=== PATIENT | female | born 1965 | race Caucasian/White ===

== ENCOUNTER 2024-01-03 08:10 | Emergency (ER) | payer OTHER ==
--- OUTSIDE RECORDS SUMMARY | 2024-01-03 08:12 | XMS REPORT | Continuity of Care Document ---
Author Name Unknown Address [address] [facility] [address] [place] [address] [facility] thconnect Address [address] [facility] 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 Name Role Phone Rob BAR, Ariana Iraheta Primary Care Physician ARIANA RIVAS Attending Clinician Unava ilable LAB90 Attending Clinician Unavailable Rob BAR, Ariana Iraheta Attending Clinician [phone] Payers Payer Name Policy Type Policy Number Effective Date Expirati on Date Source [facility] 2 [id number] 2017 00:00:00 Problems Condition Name Condition Details Condition Category Status Onset Date Resolution Date Last Treatment Date Treating Clinician Comments Source Hyperlipid emia Hyperlipid emia Disease Active 09-26 00:00: 00 Luis Andrews Hypothyroi d Hypothyroi d Disease Active 09-26 00:00: 00 Luis Andrews Seasonal allergies Seasonal allergies Disease Active 09-26 00:00: 00 Luis Andrews PND (post-nasa l drip) PND (post-nasa l drip) Disease Active 09-26 00:00: 00 Luis Andrews Social History Social Habit Start Date Stop Date Quantity Comments Source Sex Ass[birth year] At 1965 00:00:00 1965 00:00:00 Luis Andrews Smoking Status Start Date Stop Date Source Never smoked tobacco Luis Andrews Medications Ordered Medication Name Filled Medication Name Start Date Stop Date Current Medication? Ordering Clinician Indication Dosage Frequency Signature (SIG) Comments Components Source Loratadine (CLARITIN) 10 MG oral tablet 05-13 09:58: 19 Yes 10mg Take 10 mg by mouth daily Luis Andrews Tolterodine Tartrate 4 MG oral Capsule 24 Hour Sustained Release 05-13 00:00: 00 Yes [id number] 4mg Take 1 capsule (4 mg total) by mouth daily Luis Andrews Montelukast (SINGULAIR) 10 MG oral Tablet tablet 11-27 00:00: 00 Yes [id number] 10mg Take 1 tablet (10 mg total) by mouth nightly Luis Andrews Atorvastati n Calcium 40 MG oral Tablet 09-26 00:00: 00 Yes [id number] 40mg Take 1 tablet (40 mg total) by mouth daily Luis Andrews Levothyroxi ne Sodium 88 MCG oral Tablet 09-26 00:00: 00 Yes [id number] 88ug Take 1 tablet (88 mcg total) by mouth daily Luis Andrews Vital Signs Vital Name Observation Time Observation Value Comments S ource Systolic blood pressure 2021-05-13 15:57:00 119 mm[Hg] Luis Andrews Diastolic blood pressure 2021-05-13 15:57:00 74 mm[Hg] Luis Marrufo ld Heart rate 2021-05-13 15:57:00 97 /min Linda Andrews Body temperature 2021-05-13 15:57:00 36.33 Teresa Luis Andrews Respiratory rate 2021-05-13 15:57:00 14 /min Luis Andrews Body height 2021-05-13 15:57:00 170.2 cm Savita Andrews Body weight 2021-05-13 15:57:00 87.998 kg Savita Andrews BMI 2021-05-13 15:57:00 30.38 kg/m2 Savita Andrews Procedures Procedure Date / Time Performed Performing Clinicia n Source URINALYSIS NONAUTO W/O SCOPE 2021-05-13 16:12:00 Ariana Rivas Encounters Start Date/Time End Date/Time Encounter Type Admission Type Attending [facility] Care Department Encounter ID Source 2023-09-22 10:24:00 Outpatient [facility] [id number] [facility] 2023-08-05 14:50:00 Outpatient [facility] [id number] [facility] 2021-05-23 00:00:00 2021-05-23 00:00:00 Outpatient ARIANA RIVAS [id number] Luis Andrews 2021-05-13 10:35:00 2021-05-13 10:35:00 Outpatient LABEmilia SMITH [id number] Luis Andrews 2021-05-13 10:00:00 2021-05-13 10:15:00 Office Visit Ariana Rivas [facility] [id number] Luis Andrews 2020-11-29 00:00:00 2020-11-29 00:00:00 Outpatient ARIANA RIVAS [id number] Luis Andrews 2020-11-27 08:45:00 2020-11-27 08:45:00 Outpatient LABEmilia LUIS SMITH [id number] Luis Andrews 2020-11-27 08:00:00 2020-11-27 08:00:00 Outpatient ARIANA RIVAS [id number] Luis Andrews 2020-10-15 00:00:00 2020-10-15 00:00:00 Outpatient ARIANA RIVAS [id number] Luis Andrews Results Test Description Test Time Test Comments Results Result Co mments Source Luis Andrews
[2024-01-03] MEDS ORDERED: ONDANSETRON 4 MG/2 ML VIAL ONE (08:37)
[2024-01-03] MEDS ORDERED: NA CHLORIDE 0.9% 1,000 ML ONE ×2 (08:38→10:48)
[2024-01-03] MEDS ORDERED: MORPHINE 4 MG/ML SYR ONE (08:38)
[2024-01-03 08:59] LABS: Sqamous Epithelial <5 /HPF (None Seen); Urine Bacteria None Seen /HPF (<20); Urine Bilirubin 1+ (Negative); Urine Blood Negative (Negative); Urine Clarity Extremely Turbid (Clear); Urine Color Yellow (Yellow); Urine Culture Reflex Order NOT NEEDED; Urine Glucose NEGATIVE (Negative); Urine Ketones NEGATIVE (Negative); Urine Microscopic Reflex YN ORDER UMIC; Urine Mucus 2+ /HPF (None Seen); Urine Nitrite NEGATIVE (Negative); Urine Protein 1+ (Negative); Urine Urobilinogen 1+ (Normal)
[2024-01-03 09:06] LABS: Absolute Lymphocytes (CBC) 0.7 K/uL (0.7-4.9); Absolute Monocytes 1.2 K/uL (0.1-1.3); Absolute Neutrophil 7.6 K/uL (1.8-8.0); Basophils % 0.2 % (0-1.3); Eosinophils % 0.1 % (0-4.4); Hematocrit 35.6 % (36.0-45.0); Hemoglobin 11.4 g/dL (12.0-15.0); MCH 28.1 pg (27.0-35.0); MCHC 32.1 g/dL (32.0-36.0); MCV 87.6 fL (80-100); MPV 8.3 fL (7.6-11.3); Monocytes % 12.9 % (3.3-12.3); Neutrophils % 79.8 % (41.7-73.7); Platelets 437 thou/uL (152-406); RBC Red Blood Cell Count 4.06 M/uL (3.86-4.86); Red Cell Distribution Width 16.5 % (12.1-15.2)
[2024-01-03 09:14] LABS: Albumin/Globulin Ratio 0.8 (1.1-1.8); Anion Gap 9.7 mEq/L (5.0-15.0); Bilirubin Total 0.5 mg/dL (0.2-1.0); Globulin 3.9 g/dL (2.3-3.5); Potassium 3.7 mEq/L (3.5-5.1); Protein, Total 6.9 g/dL (6.4-8.2)
[2024-01-03 09:17] LABS: Troponin High Sensitivity 12484.6 pg/mL (<58.9)
--- NOTE | 2024-01-03 09:30 | RAD REPORT ---
EXAMINATION: CT ABDOMEN AND PELVIS WITH CONTRAST CLINICAL INDICATION: Female, 58 years old.ABD PAIN TECHNIQUE: CT abdomen and pelvis was performed, after the administration of IV contrast, as per [facility] protocol. Axial, sagittal and coronal reconstructions were obtained. One or more of the following dose reduction techniques were used: Automated exposure control, adjustment of the mA and/o r kV according to patient size, and/or iterative reconstruction. Unless otherwise specified, incidental findings do not require dedicated imaging follow-up. [id number]. COMPARISON: No prior exam. FINDINGS: LOWER CHEST: The visualized lung bases are clear. LIVER: Multiple liver lesions identified. The largest in the left hepatic lobe measures 2.8 cm. The l argest in the right measures 2 cm. GALLBLADDER/BILE DUCT: Cholelithiasis with gallbladder wall thickening.? PANCREAS: No significant abnormality. SPLEEN: Normal size. No focal lesion. ADRENALS: Normal; no mass. KIDNEYS AND URETERS: Normal size and contour. No hydronephrosis. GASTROINTESTINAL TRACT: Dilated appendix with appendicolith. Mass at the cecum. PERITONEUM: Mild ascites. Enlarged lymph nodes in the ileocolic mesentery. There are several implants in the lower pelvis. LYMPH NODES: Enlarged ileocolic mesenteric lymph nodes. There is one for example measures 2.2 cm in s hort axis. ABDOMINAL AORTA AND OTHER VESSELS: Normal caliber aorta and IVC. URINARY BLADDER: Normal contour. REPRODUCTIVE ORGANS: No pathologic process MUSCULOSKELETAL: No acute or suspicious osseous abnormality. ADDITIONAL FINDINGS: None. IMPRESSION: Cecal mass concerning for colonic adenocarcinoma with regional lymphadenopathy and metastatic disease to the liver. Peritoneal carcinomatosis is also present. The appendix is dilated as a result of obstruction from the cecal mass. Acute appendicitis not excluded. Recommend surgical consultation. Greta scussed with Dr. Horne by Dr. King at 0920 on 01/03/24
--- NOTE | 2024-01-03 10:15 | EDPHYS ---
Physician Documentation [facility] Name: Adrianne Cross Age: 58 yrs Sex: Female : 1965 Arrival Date: 01/03/2024 Time: 08:10 Bed 13 Private MD: ED Physician Denae Horne HPI: 01/02 08:46 This 58 yrs old Female presents to ER via Ambulatory with complaints of Flank Pain - sp3 right, Nausea/Vomiting/Diarrhea. 08:46 58-year-old female with history of hyperlipidemia, hypothyroidism presents with sp3 right-sided abdominal pain radiating to the right flank for approximately 24 hours. Patient has no past surgical history. She denies any flank pain, fever, chest pain, shortness of breath, visualized hematuria, urinary frequency, dysuria, GREEN BELT complaints, or any other signs or symptoms on ROS at this time. She does endorse nausea without diarrhea.. Historical: - Allergies: 08:43 No Known Allergies; ss - PMHx: 08:43 Hypothyroidism; high cholesterol; ss - Immunization history:: Client reports receiving the 1st dose of the Covid vaccine. - Infectious Disease History:: Denies. - Social history:: Smoking status: Patient denies any tobacco usage or history of. ROS: 09:06 Constitutional: Negative for fever, chills, and weight loss, Eyes: Negative for injury, sp3 pain, redness, and discharge, ENT: Negative for injury, pain, and discharge, Cardiovascular: Negative for chest pain, palpitations, and edema, Respiratory: Negative for shortness of breath, cough, wheezing, and pleuritic chest pain, Back: Negative for injury and pain, MS/Extremity: Negative for injury and deformity, Skin: Negative for injury, rash, and discoloration, Neuro: Negative for headache, weakness, numbness, tingling, and seizure, Psych: Negative for depression, anxiety, suicide ideation, homicidal ideation, and hallucinations, Allergy/Immunology: Negative for hives, rash, and allergies, Endocrine: Negative for neck swelling, polydipsia, polyuria, polyphagia, and marked weight changes, Hematologic/Lymphatic: Negative for swollen nodes, abnormal bleeding, and unusual bruising, 09:06 All other systems are negative, Exam: 09:08 Constitutional: This is a well developed, well nourished patient who is awake, alert, sp3 and in no acute distress. Head/Face: Normocephalic, atraumatic. Eyes: Pupils equal round and reactive to light, extra-ocular motions intact. Lids and lashes normal. Conjunctiva and sclera are non-icteric and not injected. Cornea within normal limits. Periorbital areas with no swelling, redness, or edema. Neck: Trachea midline, no thyromegaly or masses palpated, and no cervical lymphadenopathy. Supple, full range of motion without nuchal rigidity, or vertebral point tenderness. No Meningismus. Chest/axilla: Normal chest wall appearance and motion. Nontender with no deformity. No lesions are appreciated. Cardiovascular: Regular rate and rhythm with a normal S1 and S2. No gallops, murmurs, or rubs. Normal PMI, no JVD. No pulse deficits. Respiratory: Lungs have equal breath sounds bilaterally, clear to auscultation and percussion. No rales, rhonchi or wheezes noted. No increased work of breathing, no retractions or nasal flaring. Back: No spinal tenderness. No costovertebral tenderness. Full range of motion. Skin: Warm, dry with normal turgor. Normal color with no rashes, no lesions, and no evidence of cellulitis. MS/ Extremity: Pulses equal, no cyanosis. Neurovascular intact. Full, normal range of motion. Neuro: Awake and alert, GCS 15, oriented to person, place, time, and situation. Cranial nerves II-XII grossly intact. Motor strength 5/5 in all extremities. Sensory grossly intact. Cerebellar exam normal. Normal gait. Psych: Awake, alert, with orientation to person, place and time. Behavior, mood, and affect are within normal limits. 09:30 ECG was reviewed by the Attending Physician. EKG demonstrates sinus bradycardia at 53 sp3 bpm with normal intervals except QTc of [address] nonspecific diffuse ST/T changes without evidence of acute ischemia. Vital Signs: 08:41 BP 125 / 73; Pulse 58; Resp 16; Temp 97.9(O); Pulse Ox 98% on R/A; Weight 77.11 kg; ss Height 5 ft. 7 in. ; Pain 5/10; 09:30 BP 117 / 66; Pulse 56; Resp 18; Pulse Ox 100% on R/A; db 10:00 BP 112 / 65; Pulse 49; Resp 16; Pulse Ox 100% on R/A; db 11:00 BP 103 / 59; Pulse 49; Resp 18; Pulse Ox 100% ; db 12:00 BP 102 / 58; Pulse 52; Resp 18; Pulse Ox 99% on R/A; db 13:00 BP 99 / 60; Pulse 55; Resp 18; Pulse Ox 96% on R/A; db 14:00 BP 103 / 60; Pulse 56; Resp 20; Temp 97.9; Pulse Ox 95% on R/A; db 15:23 BP 105 / 62; Pulse 58; Resp 18; Pulse Ox 96% ; db 08:41 Body Mass Index 26.63 (77.11 kg, 170.18 cm) ss 08:41 Pain Scale: Adult ss MDM: 08:27 Patient medically screened. sp3 09:10 Data reviewed: vital signs, nurses notes, lab test result(s), EKG, radiologic studies. sp3 ED course: 58-year-old female with right-sided abdominal pain. Differential diagnosis includes UTI/pyelonephritis spectrum, kidney stone, biliary pathology including gallbladder gastritis, colitis, appendicitis, among others. I am at highly suspicious for sepsis, shock, AAA, or any other critical process at this time. Workup will include CT scan of the abdomen pelvis with IV contrast, laboratory values, urine analysis and general supportive care with morphine and ondansetron IV as needed.. 09:30 ED course: . sp3 09:38 ED course: CT scan demonstrates new diagnosis of colon adenocarcinoma with metastases sp3 to liver and local lymph nodes. Troponin also noted to be at 12,000 with EKG demonstrating no ST elevation. Consider pulmonary embolism as secondary cause of patient's symptoms however patient has no chest pain or shortness of breath currently. CT scan of the chest will be added on and patient will be admitted to internal medicine with cardiology and general surgery consultations. I have contacted both via instant message who will be seeing patient.. 10:13 ED course: Inpatient team not comfortable taking care of patient here. We will transfer sp3 patient to [facility] where they will have surgical backup to potential cardiac intervention.. 14:03 ED course: Patient accepted at [facility].. sp3 01/02 08:28 Order name: CBC with Diff; Complete Time: 09:22 sp3 01/02 08:28 Order name: CMP; Complete Time: 09:22 sp3 01/02 08:28 Order name: Lipase; Complete Time: 09:22 sp3 01/02 08:28 Order name: Urinalysis w/ reflexes; Complete Time: 09:22 sp3 01/02 08:28 Order name: Troponin High Sensitivity; Complete Time: 09:22 sp3 01/02 08:28 Order name: Lactate w/ 2H reflex if indic.; Complete Time: 09:22 sp3 01/02 08:28 Order name: CT Abd/Pelvis - IV Contrast Only; Complete Time: 09:32 sp3 01/02 08:28 Order name: EKG; Complete Time: 08:29 sp3 01/02 08:28 Order name: IV Saline Lock; Complete Time: 08:57 sp3 01/02 08:28 Order name: Labs collected and sent; Complete Time: 08:57 sp3 01/02 08:28 Order name: EKG - Nurse/Tech; Complete Time: 10:07 sp3 01/02 11:36 Order name: NPO; Complete Time: 15:02 sb4 Administered Medications: 08:45 Drug: NS 0.9% IV 1000 ml IV at 1 bolus Per protocol; 1000 mL bolus Route: IV; Rate: 1 db bolus; Site: right antecubital; 10:00 Follow up: Response: No adverse reaction; IV Status: Completed infusion; IV Intake: db 1000ml 08:45 Drug: Ondansetron IVP 4 mg IVP once; over 2 minutes Route: IVP; Site: right antecubital;db 10:08 Follow up: Response: No adverse reaction db 08:45 Drug: morphine IVP or IV 4 mg IVP once over 4 mins Route: IVP; Infused Over: 4 mins; db Site: right antecubital; 10:08 Follow up: Response: No adverse reaction db 13:15 Drug: NS 0.9% IV 1000 ml IV at 1 bolus Per protocol; 1000 mL bolus Route: IV; Rate: 1 db bolus; Site: right antecubital; 14:15 Follow up: Response: No adverse reaction; IV Status: Completed infusion; IV Intake: db 1000ml Disposition Summary: 01/03/24 10:14 Transfer Ordered Notes: Transfer Location: [facility] sp3 Reason: Higher level of care sp3 Condition: Stable sp3 Problem: new sp3 Symptoms: have worsened sp3 Accepting Physician: ROBYN (01/03/24 15:34) db Diagnosis - New onset colon cancer with metastases, NSTEMI, dilated appendix sp3 Forms: - Medication Reconciliation Form sp3 - SBAR form sp3 Critical care time excluding procedures: 09:46 Critical care time: Bedside Care: 10 minutes, Consultation: 10 minutes, Family sp3 Intervention: 10 minutes. Total time: 30 minutes Signatures: Dispatcher [employer] EDMS Yajaira Fuentes, RN RN ss Denae Horne MD MD sp3 Stacy Dockery RN RN Bianca Beatty, PA-C PA-C sb4 Corrections: (The following items were deleted from the chart) 08:29 08:29 CBC+H.LAB.BRZ ordered. EDMS EDMS 08:29 08:29 COMPREHENSIVE METABOLIC PANEL+C.LAB.BRZ ordered. EDMS EDMS 08:29 08:29 LIPASE+C.LAB.BRZ ordered. EDMS EDMS 08:29 08:29 Urinalysis+U.LAB.BRZ ordered. EDMS EDMS 08:29 08:29 Troponin High Sensitivity+C.LAB.BRZ ordered. EDMS EDMS 08:29 08:29 LACTATE+C.LAB.BRZ ordered. EDMS EDMS 09:06 08:46 58-year-old female with history of hyperlipidemia, hypothyroidism presents with sp3 right-sided abdominal pain radiating to the right flank for approximately 24 hours. sp3 15:34 10:14 TBD sp3 db
--- NOTE | 2024-01-03 10:15 | ER ---
Nurse's Notes [facility] Name: Adrianne Cross Age: 58 yrs Sex: Female : 1965 Arrival Date: 01/03/2024 Time: 08:10 Bed 13 Private MD: Diagnosis: New onset colon cancer with metastases, NSTEMI, dilated appendix Presentation: 01/02 08:41 Chief complaint: Patient states: abd pain/ flank pain that began 2 days ago. ss Coronavirus screen: Client denies travel out of the [place] in the last 14 days. Ebola Screen: Patient denies exposure to infectious person. Patient denies travel to an Ebola-affected area in the 21 days before illness onset. Initial Sepsis Screen: Does the patient meet any 2 criteria? No. Patient's initial sepsis screen is negative. Does the patient have a suspected source of infection? No. Patient's initial sepsis screen is negative. Risk Assessment: Do you want to hurt yourself or someone else? Patient reports no desire to harm self or others. Onset of symptoms was January 01, 2024. 08:41 Method Of Arrival: Ambulatory 08:41 Acuity: RONALD 3 ss Historical: - Allergies: 08:43 No Known Allergies; ss - PMHx: 08:43 Hypothyroidism; high cholesterol; ss - Immunization history:: Client reports receiving the 1st dose of the Covid vaccine. - Infectious Disease History:: Denies. - Social history:: Smoking status: Patient denies any tobacco usage or history of. Screenin:59 [facility] ED Fall Risk Assessment (Adult) History of falling in the last 3 months, db including since admission No falls in past 3 months (0 pts) Confusion or Disorientation No (0 pts) Intoxicated or Sedated No (0 pts) Impaired Gait No (0 pts) Mobility Assist Device Used No (0 pt) Altered Elimination No (0 pt) Score/Fall Risk Level 0 - 2 = Low Risk Oriented to surroundings, Maintained a safe environment. Abuse screen: Denies threats or abuse. Denies injuries from another. Nutritional screening: No deficits noted. Tuberculosis screening: No symptoms or risk factors identified. Assessment: 08:50 Reassessment: Patient appears in no apparent distress at this time. Patient and/or db family updated on plan of care and expected duration. Pain level reassessed. Patient is alert, oriented x 3, equal unlabored respirations, skin warm/dry/pink. General: Appears in no apparent distress. comfortable, Behavior is calm, cooperative. Pain: Complains of pain in back and abdomen. Neuro: Level of Consciousness is awake, alert, obeys commands, Oriented to person, place, time, situation. GI: Abdomen is flat, non-distended, Reports nausea. 09:17 Reassessment: DR. Horne notified of critical lab value Troponin, 12,484.6. ss 10:22 Reassessment: Patient appears in no apparent distress at this time. Patient and/or db family updated on plan of care and expected duration. Pain level reassessed. Patient is alert, oriented x 3, equal unlabored respirations, skin warm/dry/pink. 12:00 Reassessment: Patient appears in no apparent distress at this time. Patient and/or db family updated on plan of care and expected duration. Pain level reassessed. Patient is alert, oriented x 3, equal unlabored respirations, skin warm/dry/pink. 13:00 Reassessment: Patient appears in no apparent distress at this time. Patient and/or db family updated on plan of care and expected duration. Pain level reassessed. Patient is alert, oriented x 3, equal unlabored respirations, skin warm/dry/pink. 14:33 Reassessment: CALLED [facility] [phone] TO GIVE PT REPORT FOR TRANSFER. db 14:33 Reassessment: Patient appears in no apparent distress at this time. Patient and/or db family updated on plan of care and expected duration. Pain level reassessed. Patient is alert, oriented x 3, equal unlabored respirations, skin warm/dry/pink. 14:45 Reassessment: REPORT GIVEN TO KELLIE ZARATE IN ICU. QUESTIONS ANSWERED. db 15:23 Reassessment: Patient appears in no apparent distress at this time. Patient and/or db family updated on plan of care and expected duration. Pain level reassessed. Patient is alert, oriented x 3, equal unlabored respirations, skin warm/dry/pink. EMS ARRIVAL FOR PATIENT TRANSPORT. Vital Signs: 08:41 BP 125 / 73; Pulse 58; Resp 16; Temp 97.9(O); Pulse Ox 98% on R/A; Weight 77.11 kg; ss Height 5 ft. 7 in. ; Pain 5/10; 09:30 BP 117 / 66; Pulse 56; Resp 18; Pulse Ox 100% on R/A; db 10:00 BP 112 / 65; Pulse 49; Resp 16; Pulse Ox 100% on R/A; db 11:00 BP 103 / 59; Pulse 49; Resp 18; Pulse Ox 100% ; db 12:00 BP 102 / 58; Pulse 52; Resp 18; Pulse Ox 99% on R/A; db 13:00 BP 99 / 60; Pulse 55; Resp 18; Pulse Ox 96% on R/A; db 14:00 BP 103 / 60; Pulse 56; Resp 20; Temp 97.9; Pulse Ox 95% on R/A; db 15:23 BP 105 / 62; Pulse 58; Resp 18; Pulse Ox 96% ; db 08:41 Body Mass Index 26.63 (77.11 kg, 170.18 cm) ss 08:41 Pain Scale: Adult ss ED Course: 08:14 Patient arrived in ED. ra3 08:15 Denae Horne MD is Attending Physician. sp3 08:34 Stacy Dockery, KELLIE is Primary Nurse. db 08:43 Triage completed. ss 08:43 Arm band placed on right wrist. ss 08:44 Initial lab(s) drawn, by me, sent to lab. Urine collected: clean catch specimen, rob db colored. Inserted saline lock: 22 gauge in right antecubital area, using aseptic technique. Blood collected. Flushed with 10 mL NS. 08:[address] via wheelchair. db 08:56 CT Abd/Pelvis - IV Contrast Only In Process Unspecified. EDMS 08:59 Patient has correct armband on for positive identification. Placed in gown. Bed in low db position. Call light in reach. Side rails up X 1. Provided Education on: LABS AND RADIOLOGY. Pulse ox on. Warm blanket given. Pillow given. 09:03 Patient moved back from [place]. db 12:23 initiated transfer to [facility]. bd 14:17 pt accepted in transfer to [facility] by dr Frazier to Mishel Payton 9 c rm [id number] bd admin approval given by Maribel Bhat. 14:40 No provider procedures requiring assistance completed. db 14:40 Patient transferred, IV remains in place. intact. db Administered Medications: 08:45 Drug: NS 0.9% IV 1000 ml IV at 1 bolus Per protocol; 1000 mL bolus Route: IV; Rate: 1 db bolus; Site: right antecubital; 10:00 Follow up: Response: No adverse reaction; IV Status: Completed infusion; IV Intake: db 1000ml 08:45 Drug: Ondansetron IVP 4 mg IVP once; over 2 minutes Route: IVP; Site: right antecubital;db 10:08 Follow up: Response: No adverse reaction db 08:45 Drug: morphine IVP or IV 4 mg IVP once over 4 mins Route: IVP; Infused Over: 4 mins; db Site: right antecubital; 10:08 Follow up: Response: No adverse reaction db 13:15 Drug: NS 0.9% IV 1000 ml IV at 1 bolus Per protocol; 1000 mL bolus Route: IV; Rate: 1 db bolus; Site: right antecubital; 14:15 Follow up: Response: No adverse reaction; IV Status: Completed infusion; IV Intake: db 1000ml Medication: 08:59 VIS not applicable for this client. db Intake: 10:00 IV: 1000ml; Total: 1000ml. db 14:15 IV: 1000ml; Total: 2000ml. db Outcome: 10:14 ER care complete, transfer ordered by . sp3 15:25 Transferred by ground EMS to [facility], Transfer form db completed. X-rays sent w/ patient. 15:25 Condition: stable 15:25 Instructed on the need for transfer, 15:34 Patient left the ED. db Signatures: Dispatcher [employer] EDMN Dahlia Sampson Shelby, KELLIE RN Denae Melendez MD MD sp3 Stacy Dockery RN RN Hayley Ruth ra3 Corrections: (The following items were deleted from the chart) 12:24 12:22 No provider procedures requiring assistance completed. db db 12:24 12:22 IV discontinued, intact, bleeding controlled, No redness/swelling at site. db db 12:24 12:22 Discharged to home ambulatory, db db 12:24 12:22 Condition: stable db db 12:24 12:22 Discharge instructions given to patient, Instructed on discharge instructions, db follow up and referral plans. Prescriptions given X 1, db 14:44 14:00 BP 103 / 60; Pulse 56bpm; Resp 20bpm; Pulse Ox 95% RA; db db
[2024-01-03 15:50] VITALS: TEMP 97.9
[2024-01-03 16:03] VITALS: BP 105/62; O2SAT 96
--- NOTE | 2024-01-04 12:30 | EKG ---
Test Date: 2024-01-03 Test Time: 09:13:02 Dev Technical Mgr: CLARISSA MEASUREMENT RESULTS: Intervals: Rate: 53 [place]: QRSD: 106 QT: 556 QTc: 521 [place]: P: 64 [place]: QRS: 46 T: 64 INTERPRETIVE STATEMENTS: Sinus bradycardia Incomplete left bundle branch block Prolonged QT Abnormal ECG Compared to ECG 08/17/2014 20:47:48 Prolonged QT interval now present Sinus arrhythmia no longer present Electronically Signed On 01-04-24 12:27:47 CDT by Soto Mcgovern
== END 2024-01-03 15:34 | disposition short-term general hospital (02) ==
LOC: ER 08:10
DX: C18.9 Malignant neoplasm of colon, unspecified (principal); C78.7 Secondary malignant neoplasm of liver and intrahepatic bile duct; C48.2 Malignant neoplasm of peritoneum, unspecified; I21.4 Non-ST elevation (NSTEMI) myocardial infarction; K38.0 Hyperplasia of appendix; E78.00 Pure hypercholesterolemia, unspecified; E03.9 Hypothyroidism, unspecified
CPT/HCPCS: 96361; 93005; 85025; 81001; 36415; 83605; 84484; 83690; 80053; 74177; 96375; 96374; 99285; Q9967; J2405; J7030 ×2